=== PATIENT | male | born 1995 | race Caucasian/White ===

== ENCOUNTER 2018-12-10 14:33 | Emergency (ER) | payer OTHER ==
[2018-12-10] MEDS ORDERED: TDAP VACCINE 0.5 ML SUS IM ONE ×2 (14:57→15:14)
[2018-12-10 15:08] VITALS: RESP 20; O2SAT 99
[2018-12-10] MEDS ORDERED: LIDOCAINE HCL 2% MPF 10 ML SOL ONE ×2 (15:25→16:43)
[2018-12-10] MEDS ORDERED: LIDOCAINE HCL 2% MPF 10 ML SOL SC ONE ×2 (16:33→16:59)
[2018-12-10] MEDS ORDERED: BACITRACIN 500 U/GM OIN TOP ONE ×2 (16:43→17:00)
[2018-12-10 17:15] VITALS: BP 128/76; PULSE 98; TEMP 98.2
== END 2018-12-10 17:23 | disposition home or self-care (01) | DRG 605 ==
LOC: ED 14:33
DX: S61.411A Laceration without foreign body of right hand, initial encounter (principal); W26.8XXA Contact with other sharp object(s), not elsewhere classified, initial encounter
CPT/HCPCS: 12042; 73110; 90471; 90715; 99285; A6402; A9270-GY